=== PATIENT | female | born 1990 | race African-American/Black ===

== ENCOUNTER 2017-01-19 13:02 | Emergency (ER) | payer BC ==
[~2017-01-19] VITALS: Ht 180.3 cm; Wt 96.0 kg
[2017-01-19 13:13] VITALS: BP 114/54
== END 2017-01-19 19:25 | disposition left against medical advice (07) ==
LOC: ER 13:52
DX: O26.891 Other specified pregnancy related conditions, first trimester (principal); Z3A.01 Less than 8 weeks gestation of pregnancy; M54.5 Low back pain; Z53.21 Procedure and treatment not carried out due to patient leaving prior to being seen by health care provider

== ENCOUNTER 2017-06-24 21:17 | Emergency (ER) | payer BC, MEDICAID ==
[~2017-06-24] VITALS: Ht 177.8 cm; Wt 105.0 kg
[2017-06-24 22:27] VITALS: BP 134/71
== END 2017-06-25 07:44 | disposition left against medical advice (07) ==
LOC: ER 21:17
DX: O26.893 Other specified pregnancy related conditions, third trimester (principal); Z3A.39 39 weeks gestation of pregnancy; R60.0 Localized edema; Z53.21 Procedure and treatment not carried out due to patient leaving prior to being seen by health care provider